=== PATIENT | female | born 1950 | race African-American/Black ===

== ENCOUNTER 2020-07-24 | Outpatient (RCR) | payer MEDICARE, MEDICAID, SELFPAY | END 2020-07-24 16:00 | disposition home or self-care (01) | LOC: HO.WCC | PROVIDERS: Visit Provider Surgery | DX: Z09 Encounter for follow-up examination after completed treatment for conditions other than malignant neoplasm (principal); G35 Multiple sclerosis | CPT/HCPCS: 99213 ==

== ENCOUNTER 2021-01-16 13:00 | Outpatient (RCR) | payer MEDICARE, MEDICAID, SELFPAY | END 2021-01-30 15:01 | disposition home or self-care (01) | LOC: HO.WCC 13:00 | PROVIDERS: PCP Physician Assistant; Visit Provider Surgery | DX: L89.892 Pressure ulcer of other site, stage 2 (principal); G35 Multiple sclerosis; I10 Essential (primary) hypertension; Z87.891 Personal history of nicotine dependence; Z74.01 Bed confinement status | CPT/HCPCS: 99213 ==